=== PATIENT | female | born 1940 | race Caucasian/White ===

== ENCOUNTER 2017-08-23 11:08 | Emergency (ER) | payer MEDICARE ==
[2017-08-23 11:31] VITALS: BP 126/63
--- NOTE | 2017-08-23 11:42 | UC ---
Skin Complaint HPI - HPI Summary HPI Summary: pain right 3rd finger x 2 days + swelling / redness distal right 3rd no fever, no chills - History of Current Complaint Chief Complaint: UCSkin Time Seen by Provider: 08/23/17 11:21 Stated Complaint: FINGER COMP Hx Obtained From: Patient Onset/Duration: Gradual Onset, Lasting Days - 2, Still Present Timing: Constant Onset Severity: Moderate Current Severity: Moderate Pain Intensity: 8 Location: Hand (Right) - right 3rd finger Character: Swelling, Pain, Redness, Raised, Painful Aggravating Factor(s): Nothing Alleviating Factor(s): Nothing Associated Signs & Symptoms: Positive: Negative - Allergy/Home Medications Allergies/Adverse Reactions: Allergies Allergy/AdvReac Type Severity Reaction Status Date / Time No Known Allergies Allergy Verified 08/23/17 11:23 Home Medications: Home Medications Ubidecarenone [Co Q-10] 200 mg PO DAILY 08/23/17 [History Confirmed 08/23/17] Review of Systems Constitutional: Negative Skin: Negative Eyes: Negative ENT: Negative Respiratory: Negative Cardiovascular: Negative Gastrointestinal: Negative Is Patient Immunocompromised?: No All Other Systems Reviewed And Are Negative: Yes PMH/Surg Hx/FS Hx/Imm Hx Cardiovascular History: Hypertension - Surgical History Surgical History: Yes Surgery Procedure, Year, and Place: left lumpectomy, tonsilectomy, laparotomy - Family History Known Family History: Positive: Cardiac Disease, Hypertension - Social History Alcohol Use: Daily Alcohol Amount: glass of wine w/ dinner Substance Use Type: None Smoking Status (MU): Former Smoker Type: Cigarettes When Did the Patient Quit Smoking/Using Tobacco: 1999 - Immunization History Most Recent Tetanus Shot: 5 years ago Physical Exam Triage Information Reviewed: Yes Appearance: Well-Appearing, No Pain Distress, Well-Nourished Vital Signs: Initial Vital Signs Temp 98.5 F 08/23/17 11:26 Pulse 65 08/23/17 11:26 Resp 20 08/23/17 11:26 BP 126/63 08/23/17 11:26 Pulse Ox 98 08/23/17 11:26 Vital Signs Reviewed: Yes Eyes: Positive: Conjunctiva Clear ENT: Positive: Normal ENT inspection, Hearing grossly normal, Pharynx normal Neck exam: Normal Neck: Positive: Supple, Nontender, No Lymphadenopathy Respiratory: Positive: Chest non-tender, Lungs clear, Normal breath sounds Cardiovascular: Positive: RRR, No Murmur, Pulses Normal Skin: Positive: Other - paronychia right 3rd finger , + swelling , erythema , tender Course/Dx - Diagnoses Provider Diagnoses: Paronychial right 3rd finger Discharge - Sign-Out/Discharge Documenting (check all that apply): Discharge/Admit/Transfer - Discharge Plan Condition: Stable Disposition: HOME Prescriptions: Cephalexin CAP* [Keflex CAP*] 500 mg PO TID #21 cap Patient Education Materials: Paronychia (ED) Referrals: Shirley Thomas MD [Primary Care Provider] - If Needed - Billing Disposition and Condition Condition: STABLE Disposition: HOME
== END 2017-08-23 11:44 | disposition home or self-care (01) ==
LOC: UCCORT 11:08
DX: L03.011 Cellulitis of right finger (principal); I10 Essential (primary) hypertension; Z87.891 Personal history of nicotine dependence
CPT/HCPCS: 99212; G0463